=== PATIENT | female | born 1975 | race American Indian/Alaskan Native ===

== ENCOUNTER 2018-08-28 11:38 | Emergency (ER) | payer BC ==
[2018-08-28 11:39] VITALS: BMI 37.8
[2018-08-28 11:46] VITALS: BP 134/88; PULSE 85; RESP 19; TEMP 98.6; O2SAT 100
--- NOTE | 2018-08-28 12:23 | RAD ---
HISTORY: cough COMPARISON: No prior. TECHNIQUE: Chest PA and lateral FINDINGS: Limited by habitus and hypoinflation. LUNGS: No focal consolidation. Please note that chest x-ray has limited sensitivity for the detection of pulmonary masses. PLEURA: No significant pleural effusion identified. No definite pneumothorax . CARDIOVASCULAR: Heart size appears top normal. OSSEOUS STRUCTURES: Degenerative changes. VISUALIZED UPPER ABDOMEN: Unremarkable. OTHER FINDINGS: None. IMPRESSION: Hypoinflation.
--- NOTE | 2018-08-28 12:33 | C.PDOC ---
History Of Present Illness 43 y/o female presents to the ER complaining of cough and sore throat which has been present for the past 5 days. Patient states that she saw her PMD 3 days ago, he prescribed her antibiotics and nasal spray without relief. Patient reports that she had nausea and diarrhea after taking antibiotic. Patient states she feels the same and has missed work because of being sick. Otherwise, patient denies having fever, chills, chest pain, and SOB. Time Seen by Provider: 08/28/18 11:55 Chief Complaint (Nursing): Cough, Cold, Congestion History Per: Patient History/Exam Limitations: no limitations Onset/Duration Of Symptoms: Days Current Symptoms Are (Timing): Still Present Severity: Moderate Past Medical History Reviewed: Historical Data, Nursing Documentation, Vital Signs Vital Signs: Last Vital Signs Temp 98.6 F 08/28/18 11:44 Pulse 85 08/28/18 11:44 Resp 19 08/28/18 11:44 BP 134/88 08/28/18 11:44 Pulse Ox 100 08/28/18 11:44 - Medical History PMH: Anemia, Anxiety, Asthma, Depression, Gastritis, HTN Denies: Chronic Kidney Disease Other Surgeries: Hx of surgeries - [facility] EXCISION OF UVULA (04/24/01) TONSILLECTOMY (04/24/01) Family History: States: No Known Family Hx - Social History Hx Tobacco Use: No Hx Alcohol Use: No Hx Substance Use: No - Immunization History Hx Tetanus Toxoid Vaccination: No Hx Influenza Vaccination: Yes Hx Pneumococcal Vaccination: No Review Of Systems Constitutional: Negative for: Fever, Chills Eyes: Negative for: Vision Change, Redness ENT: Positive for: Throat Pain. Negative for: Ear Pain Cardiovascular: Negative for: Chest Pain Respiratory: Positive for: Cough. Negative for: Shortness of Breath Gastrointestinal: Negative for: Abdominal Pain Neurological: Negative for: Headache, Dizziness Physical Exam - Physical Exam Appears: Non-toxic, No Acute Distress Skin: Normal Color, Warm, Dry Head: Atraumatic, Normacephalic Eye(s): bilateral: Normal Inspection, EOMI Ear(s): Bilateral: Normal Nose: Normal Oral Mucosa: Moist Throat: Normal, No Erythema, No Exudate Neck: Supple Chest: Symmetrical Cardiovascular: Rhythm Regular Respiratory: Normal Breath Sounds, No Rales, No Rhonchi, No Wheezing Extremity: Bilateral: Atraumatic, Normal Color And Temperature, Normal ROM Neurological/Psych: Oriented x3, Normal Speech Gait: Steady ED Course And Treatment O2 Sat by Pulse Oximetry: 100 (RA) Pulse Ox Interpretation: Normal - Other Rad CXR X-Ray: Viewed By Me, Read By Radiologist Interpretation: HISTORY: cough. COMPARISON: No prior. TECHNIQUE: Chest PA and lateral. FINDINGS: Limited by habitus and hypoinflation. LUNGS: No focal consolidation. Please note that chest x-ray has limited sensitivity for the detection of pulmonary masses. PLEURA: No significant pleural effusion identified. No definite pneumothorax . CARDIOVASCULAR: Heart size appears top normal. OSSEOUS STRUCTURES: Degenerative changes. VISUALIZED UPPER ABDOMEN: Unremarkable. OTHER FINDINGS: None. IMPRESSION: Hypoinflation. Medical Decision Making Medical Decision Making: Impression: Upper Respiratory Infection Plan: * CXR Progress: Chest xray was normal, no acute disease. Patient remained afebrile alert and oriented with stable vital signs during ER evaluation. On re-examination, patient is resting comfortably in no acute respiratory distress. Lungs clear bilaterally. Patient feels comfortable going home and will be discharged. Patient given follow up instructions. Instructed to return to ER if symptoms worsen or new symptoms arise. Disposition Counseled Patient/Family Regarding: Diagnosis, Need For Followup, Rx Given - Disposition Referrals: Jessica Goodwin MD [Staff Provider] - Disposition: HOME/ ROUTINE Disposition Time: 12:32 Condition: GOOD Additional Instructions: Follow up with your primary medical doctor or clinic in 2-5 days for further evaluation. Take medications as prescribed. Return to the emergency department at any time if symptoms persist or worsen. 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 - Scribe Statement The provider has reviewed the documentation as recorded by the Scribe Dereck Winter Provider Attestation All medical record entries made by the Scribe were at my direction and personall y dictated by me. I have reviewed the chart and agree that the record accurately reflects my personal performance of the history, physical exam, medical decision making, and the department course for this patient. I have also personally directed, reviewed, and agree with the discharge instructions and disposition.
== END 2018-08-28 12:55 | disposition home or self-care (01) ==
LOC: C.ER 11:38
DX: J06.9 Acute upper respiratory infection, unspecified (principal); I10 Essential (primary) hypertension

== ENCOUNTER 2018-11-07 08:46 | Emergency (ER) | payer SELFPAY ==
[2018-11-07 08:47] VITALS: BMI 37.8
[2018-11-07 08:53] VITALS: BP 129/91; PULSE 80; RESP 16; TEMP 99; O2SAT 98
--- NOTE | 2018-11-07 09:15 | C.PDOC ---
History Of Present Illness 43 y/o female with a PMHx of HTN, asthma, and s/p right knee surgery, presents to the ED complaining of right knee pain. States she knelt down and developed the knee pain 1 week ago, which worsened yesterday. She denies any trauma or recent fall. Patient also denies numbness, weakness, tingling, or calf pain/swelling. Time Seen by Provider: 11/07/18 08:57 Chief Complaint (Nursing): Lower Extremity Problem/Injury History Per: Patient History/Exam Limitations: no limitations Onset/Duration Of Symptoms: Days Current Symptoms Are (Timing): Still Present Past Medical History Reviewed: Historical Data, Nursing Documentation, Vital Signs Vital Signs: Last Vital Signs Temp 99 F 11/07/18 08:49 Pulse 80 11/07/18 08:49 Resp 16 11/07/18 08:49 BP 129/91 H 11/07/18 08:49 Pulse Ox 98 11/07/18 08:49 - Medical History PMH: Anemia, Anxiety, Asthma, Depression, Gastritis, HTN Denies: Chronic Kidney Disease Other Surgeries: Right knee surgery - [facility] EXCISION OF UVULA (04/24/01) TONSILLECTOMY (04/24/01) Family History: States: Unknown Family Hx - Social History Hx Tobacco Use: No Hx Alcohol Use: No Hx Substance Use: No - Immunization History Hx Tetanus Toxoid Vaccination: No Hx Influenza Vaccination: Yes Hx Pneumococcal Vaccination: No Review Of Systems Except As Marked, All Systems Reviewed And Found Negative. Constitutional: Negative for: Fever Cardiovascular: Negative for: Chest Pain Respiratory: Negative for: Shortness of Breath Musculoskeletal: Positive for: Leg Pain (Right knee) Skin: Negative for: Rash, Bruising Neurological: Negative for: Weakness, Numbness, Incoordination Physical Exam - Physical Exam Appears: Non-toxic, No Acute Distress Skin: Warm, Dry Head: Atraumatic, Normacephalic Eye(s): bilateral: Normal Inspection Neck: Normal ROM Chest: Symmetrical Cardiovascular: Rhythm Regular, No Murmur Respiratory: Normal Breath Sounds, No Accessory Muscle Use Gastrointestinal/Abdominal: Soft, No Tenderness, No Distention Extremity: Normal ROM (of the right knee), Tenderness (over the right tibial tuberosity), No Swelling, Other (No erythema or ecchymoses) Pulses: Left Dorsalis Pedis: Normal, Right Dorsalis Pedis: Normal Neurological/Psych: Oriented x3, Normal Speech ED Course And Treatment O2 Sat by Pulse Oximetry: 98 (RA) Pulse Ox Interpretation: Normal - Other Rad Knee x-ray X-Ray: Read By Radiologist Interpretation: Accession No. : [id number]. Patient Name / ID : CAMI NELSON / [id number]. Exam Date : 11/07/2018 09:21:19 ( Approved ). Study Comment : Sex / Age : F / 43Y. Creator : Cathy Rothman MD. Dictator : Cathy Rothman MD. Bar Tacker : Boiler Shop Mechanic : Cathy Rothman MD. Approver2 : Report Date : 11/07/2018 09:50:28. My Comment : . Date of service: 11/07/2018. PROCEDURE: Right Knee Radiographs. HISTORY: Knee pain. COMPARISON: None. FINDINGS: BONES: Bone alignment and mineralization are normal. There is approximately 1.5 x 2.2 cm sclerotic lesion with irregular somewhat spiculated margins and wide zone of transition in the anterior aspect of the distal metaphysis of femur. JOINTS: Mild degenerative osteoarthrosis in the medial compartment. JOINT EFFUSION: None. OTHER FINDINGS: None. IMPRESSION: Approximately 1.5 x 2.2 cm sclerotic lesion with irregular somewhat spiculated margins and wide zone of transition in the anterior aspect of the distal metaphysis of femur. The differential considerations include metastasis, lymphoma, benign and malignant primary bone neoplasm. An MRI of the knee without and with intravenous contrast is recommended for further characterization. Medical Decision Making Medical Decision Making: Impression: Atraumatic knee pain Plan: --Right knee x-ray --Tylenol PO given for pain Progress: Spoke to patient, explained knee x-ray findings describing a cyst in the right distal femur, consider lymphoma vs METs. She is aware and will call her orthopedist immediately to make an appointment. Disposition - Disposition Disposition: HOME/ ROUTINE Disposition Time: 11:13 Condition: GOOD Additional Instructions: Please call Dr Mateo Gatica # [phone] as soon as possible. Prescriptions: Acetaminophen [Tylenol] 650 mg PO Q4 #20 capsule Acetaminophen [Tylenol] 325 mg PO Q4 #20 capsule Instructions: Knee Pain Forms: [facility] (Welsh), Gym Excuse - Clinical Impression Clinical Impression: Lesion of bone of lower leg, Knee pain - Scribe Statement The provider has reviewed the documentation as recorded by the Chris Guerra Provider Attestation: All medical record entries made by the Chris were at my direction and personally dictated by me. I have reviewed the chart and agree that the record a ccurately reflects my personal performance of the history, physical exam, medical decision making, and the department course for this patient. I have also personally directed, reviewed, and agree with the discharge instructions and disposition.
--- NOTE | 2018-11-07 09:54 | RAD ---
Date of service: 11/07/2018 PROCEDURE: Right Knee Radiographs. HISTORY: Knee pain COMPARISON: None. FINDINGS: BONES: Bone alignment and mineralization are normal. There is approximately 1.5 x 2.2 cm sclerotic lesion with irregular somewhat spiculated margins and wide zone of transition in the anterior aspect of the distal metaphysis of femur. JOINTS: Mild degenerative osteoarthrosis in the medial compartment. JOINT EFFUSION: None. OTHER FINDINGS: None. IMPRESSION: Approximately 1.5 x 2.2 cm sclerotic lesion with irregular somewhat spiculated margins and wide zone of transition in the anterior aspect of the distal metaphysis of femur. The differential considerations include metastasis, lymphoma, benign and malignant primary bone neoplasm. An MRI of the knee without and with intravenous contrast is recommended for further characterization. The final report is tagged to the PA review folder and ER physician folder.
== END 2018-11-07 11:13 | disposition home or self-care (01) ==
LOC: C.ER 08:46
DX: M89.9 Disorder of bone, unspecified (principal); M25.561 Pain in right knee